=== PATIENT | female | born 1945 | race Asian ===

== ENCOUNTER → 2017-02-14 | Outpatient (CLI) | payer MEDICARE ==
--- NOTE | ~2017-02-14 | MY11 ---
[facility] A Service of [facility] RADIOLOGY TEXT RESULTS PATIENT: PASCUAL COLLINS LOCATION: [facility] : 49 UNIT #: [id number] AGE: [address]: DEE JONES APRN SEX: F ORDER DR: [id number] [facility]. [place], [place] [address] [id number] O MR#: [id number] Acc #: [id number] NAME: PASCUAL COLLINS : 1945 SEX: F STUDY DATE/TIME: 02/14/2017 12:53 UNIT: [facility] ROOM: STUDY DESCRIPTION: MY Mammogram Screening Dig Hilario Attending Physician: Dee Jones Aprn Ordering Physician: Dee Jones Aprn Primary Care Physician: Dee Jones Aprn MEDICAL IMAGING REPORT This report is preliminary unless electronic signature is present EXAM Bilateral Digital Screening Mammogram with CAD INDICATION Breast cancer screening. 71-year-old asymptomatic female. No personal or family history of breast cancer. COMPARISON None available. Prior mammograms performed in 2003 were destroyed. This will, therefore, serve as the patient's effective baseline screening exam. FINDINGS The breasts are almost entirely fatty. No suspicious findings are present. IMPRESSION No mammographic evidence of malignancy. Annual screening mammography and clinical breast exam are recommended. A result letter will be sent to the patient. Patients over the age of 40 are entered into a reminder system with target due date for the next mammogram. BIRADS: 1 Negative Dictated by... Beto Diaz M.D. THIS IS AN ELECTRONICALLY VERIFIED REPORT Beto Diaz M.D. at 02/16/2017 4:02 PM MAY/[facility] A Service [facility] RADIOLOGY TEXT RESULTS PATIENT: PASCUAL COLLINS LOCATION: [facility] : 49 UNIT #: [id number] AGE: [address]: DEE JONES APRN SEX: F ORDER DR: TD: 02/14/2017 16:26 JOB #: [id number] MEDICAL IMAGING REPORT Page 1 of 1 COPY
== END | disposition home or self-care (01) ==
LOC: CWCC 12:19
DX: Z12.31 Encounter for screening mammogram for malignant neoplasm of breast (principal)
CPT/HCPCS: G0202